=== PATIENT | male | born 1995 | race African-American/Black ===

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

== ENCOUNTER 2018-01-07 16:39 | Emergency (ER) | payer OTHER ==
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
[2018-01-07 18:51] VITALS: BP 128/73
--- NOTE | 2018-01-07 19:49 | EKG REPORT ---
SEVERITY:- NORMAL ECG - SINUS RHYTHM ST ELEV, PROBABLE NORMAL EARLY REPOL PATTERN : Confirmed by: Javier Bear MD 07-Jan-2018 19:49:16
== END 2018-01-07 18:57 | disposition home or self-care (01) ==
LOC: ER 16:39
DX: S16.1XXA Strain of muscle, fascia and tendon at neck level, initial encounter (principal); S80.02XA Contusion of left knee, initial encounter; S80.01XA Contusion of right knee, initial encounter; S20.219A Contusion of unspecified front wall of thorax, initial encounter; V49.40XA Driver injured in collision with unspecified motor vehicles in traffic accident, initial encounter
CPT/HCPCS: 71260; 72125; 93005; 93010; 99285